=== PATIENT | male | born 1980 ===

== ENCOUNTER 2019-07-20 16:12 | Inpatient (IN) ==
[2019-07-20] MEDS ORDERED: ACETAMINOPHEN 325 MG TABLET PO PRN (22:24)
[2019-07-20] MEDS ORDERED: DOCUSATE SODIUM 100 MG CAPSULE PO PRN (22:24)
[2019-07-20] MEDS ORDERED: ONDANSETRON 4 MG/2 ML VIAL IV PRN (22:24)
[2019-07-20] MEDS ORDERED: ENOXAPARIN 30 MG/0.3 ML SYRINGE ONE (23:33)
[2019-07-21] MEDS: cefTRIAXone 1,000 MG in SYRINGE 1 EACH IV SCH (02:55)
[2019-07-21 06:33] LABS: Basophils % 0.4 % (0.0-0.8); Eosinophils % 0.4 % (0.00-10.9); Hematocrit 43.1 VOL% (42.0-52.0); Hemoglobin 14.3 GM/DL (14.0-18.0); Immature Granulocytes % 1.2 %; Immature Granulocytes Absolute 0.06 #; Lymphocytes % 18.5 % (21.2-54.2); Mean Corpuscular HGB Conc 33.2 GM/DL (32-36); Mean Corpuscular Volume 96.2 FL (87-102); Mean Platelet Volume 12.5 FL (9.6-12.0); Monocytes % 9.6 % (1.7-12.7); Neutrophils % 69.9 % (38.7-73.9); Platelet Count 132 T/CUMM (130-400); Red Blood Count 4.48 MC/CUMM (3.8-5.5); Red Cell Distribution Width 16.4 % (9.3-17.3); White Blood Count 5.2 T/CUMM (4-12)
[2019-07-21 06:43] LABS: INR 1.1; PT Patient Result 11.8 SECS (9.8-11.9)
[2019-07-21 06:47] LABS: Albumin 2.9 G/DL (3.4-5.0); Bilirubin,Total 0.9 MG/DL (0.2-1.0); Calcium 7.9 MG/DL (8.5-10.1); Osmolality,Calculated 258.7 MOS/KG (273-304); Total Protein 7.7 G/DL (6.4-8.3)
[2019-07-21 06:48] LABS: Ferritin 775.6 ng/ml (26-388)
[2019-07-21] MEDS: HYDROXYCHLOROQUINE 200 MG TABLET PO SCH ×2 (09:31→20:45)
[2019-07-21] MEDS: AZITHROMYCIN 250 MG TABLET PO SCH (09:31)
[2019-07-21] MEDS: ZINC SULFATE 220 MG CAPSULE PO SCH (09:31)
[2019-07-21] MEDS: ENOXAPARIN 40 MG/0.4 ML SYRINGE SUBCUT SCH (10:51)
[2019-07-21] MEDS: POTASSIUM CHLORIDE 20 MEQ TABLET PO PRN ×5 (10:51→20:45)
[2019-07-22] MEDS: cefTRIAXone 1,000 MG in SYRINGE 1 EACH IV SCH (04:03)
[2019-07-22 06:06] LABS: Basophils % 0.6 % (0.0-0.8); Eosinophils # 0.1 10*3/uL (0.0-0.87); Eosinophils % 1.7 % (0.00-10.9); Hematocrit 43.5 VOL% (42.0-52.0); Hemoglobin 14.3 GM/DL (14.0-18.0); Immature Granulocytes % 1.5 %; Immature Granulocytes Absolute 0.08 #; Lymphocytes # 1.2 10*3/uL (1.4-4.0); Lymphocytes % 21.8 % (21.2-54.2); Mean Corpuscular HGB Conc 32.9 GM/DL (32-36); Mean Platelet Volume 12.5 FL (9.6-12.0); Monocytes % 10.8 % (1.7-12.7); Neutrophils % 63.6 % (38.7-73.9); Platelet Count 161 T/CUMM (130-400); Red Blood Count 4.53 MC/CUMM (3.8-5.5); Red Cell Distribution Width 16.6 % (9.3-17.3); White Blood Count 5.3 T/CUMM (4-12)
[2019-07-22 07:05] LABS: Albumin 3.1 G/DL (3.4-5.0); Bilirubin,Total 0.6 MG/DL (0.2-1.0); Calcium 8.1 MG/DL (8.5-10.1); Osmolality,Calculated 266.1 MOS/KG (273-304); Total Protein 7.6 G/DL (6.4-8.3)
[2019-07-22] MEDS: HYDROXYCHLOROQUINE 200 MG TABLET PO SCH ×2 (08:50→22:00)
[2019-07-22] MEDS: AZITHROMYCIN 250 MG TABLET PO SCH (08:50)
[2019-07-22] MEDS: ENOXAPARIN 40 MG/0.4 ML SYRINGE SUBCUT SCH (08:50)
[2019-07-23] MEDS: cefTRIAXone 1,000 MG in SYRINGE 1 EACH IV SCH (02:15)
[2019-07-23 05:28] LABS: Basophils % 0.7 % (0.0-0.8); Eosinophils # 0.2 10*3/uL (0.0-0.87); Eosinophils % 3.8 % (0.00-10.9); Hematocrit 44.6 VOL% (42.0-52.0); Hemoglobin 14.4 GM/DL (14.0-18.0); Immature Granulocytes % 1.7 %; Immature Granulocytes Absolute 0.07 #; Lymphocytes # 1.2 10*3/uL (1.4-4.0); Lymphocytes % 27.2 % (21.2-54.2); Mean Corpuscular HGB Conc 32.3 GM/DL (32-36); Mean Corpuscular Volume 98.7 FL (87-102); Mean Platelet Volume 12.6 FL (9.6-12.0); Monocytes % 12.1 % (1.7-12.7); Neutrophils % 54.5 % (38.7-73.9); Platelet Count 174 T/CUMM (130-400); Red Blood Count 4.52 MC/CUMM (3.8-5.5); White Blood Count 4.2 T/CUMM (4-12)
[2019-07-23 06:10] LABS: Bilirubin,Total 1.3 MG/DL (0.2-1.0); Calcium 8.3 MG/DL (8.5-10.1); Osmolality,Calculated 266.1 MOS/KG (273-304); Total Protein 7.9 G/DL (6.4-8.3)
[2019-07-23] MEDS: HYDROXYCHLOROQUINE 200 MG TABLET PO SCH ×2 (09:00→20:45)
[2019-07-23] MEDS: POTASSIUM CHLORIDE 20 MEQ TABLET PO PRN (09:00)
[2019-07-23] MEDS: ZINC SULFATE 220 MG CAPSULE PO SCH (09:00)
[2019-07-23] MEDS: AZITHROMYCIN 250 MG TABLET PO SCH (09:00)
[2019-07-23] MEDS: ENOXAPARIN 40 MG/0.4 ML SYRINGE SUBCUT SCH (09:00)
[2019-07-23 09:24] LABS: Eosinophils 2 % (0-10); Lymphocytes 17 % (20-55); Metamyelocytes 1 %; Platelet Estimate Adequate; Polychromasia Slight; Segmented Neutrophils 67 % (50-85); Total Cells Counted 100
[2019-07-24] MEDS: cefTRIAXone 1,000 MG in SYRINGE 1 EACH IV SCH (02:01)
[2019-07-24 05:46] LABS: Basophils # 0.1 10*3/uL (0.0-0.2); Eosinophils # 0.2 10*3/uL (0.0-0.87); Eosinophils % 4.2 % (0.00-10.9); Hematocrit 45.7 VOL% (42.0-52.0); Hemoglobin 14.8 GM/DL (14.0-18.0); Immature Granulocytes % 2.9 %; Immature Granulocytes Absolute 0.15 #; Lymphocytes # 1.3 10*3/uL (1.4-4.0); Lymphocytes % 25.4 % (21.2-54.2); Mean Corpuscular HGB Conc 32.4 GM/DL (32-36); Mean Corpuscular Volume 98.5 FL (87-102); Mean Platelet Volume 12.6 FL (9.6-12.0); Monocytes % 11.7 % (1.7-12.7); Neutrophils % 54.8 % (38.7-73.9); Platelet Count 218 T/CUMM (130-400); Red Blood Count 4.64 MC/CUMM (3.8-5.5); Red Cell Distribution Width 16.8 % (9.3-17.3); White Blood Count 5.2 T/CUMM (4-12)
[2019-07-24 06:07] LABS: Bilirubin,Total 0.6 MG/DL (0.2-1.0); Calcium 8.9 MG/DL (8.5-10.1); Osmolality,Calculated 269.1 MOS/KG (273-304); Total Protein 8.4 G/DL (6.4-8.3)
[2019-07-24 06:10] LABS: Eosinophils 6 % (0-10); Lymphocytes 23 % (20-55); Segmented Neutrophils 58 % (50-85); Total Cells Counted 100
[2019-07-24 06:11] LABS: Hypochromasia Slight; Macrocytosis 1+
[2019-07-24 06:12] LABS: Platelet Estimate Normal
[2019-07-24] MEDS: HYDROXYCHLOROQUINE 200 MG TABLET PO SCH ×2 (10:29→20:40)
[2019-07-24] MEDS: ENOXAPARIN 40 MG/0.4 ML SYRINGE SUBCUT SCH (10:29)
[2019-07-24] MEDS: AZITHROMYCIN 250 MG TABLET PO SCH (10:29)
[2019-07-25] MEDS: cefTRIAXone 1,000 MG in SYRINGE 1 EACH IV SCH (01:55)
[2019-07-25] MEDS: ENOXAPARIN 40 MG/0.4 ML SYRINGE SUBCUT SCH (08:19)
[2019-07-25] MEDS: ZINC SULFATE 220 MG CAPSULE PO SCH (08:20)
[2019-07-25] MEDS: HYDROXYCHLOROQUINE 200 MG TABLET PO SCH ×2 (08:20→20:00)
[2019-07-26] MEDS: cefTRIAXone 1,000 MG in SYRINGE 1 EACH IV SCH (01:37)
[2019-07-26] MEDS: ENOXAPARIN 40 MG/0.4 ML SYRINGE SUBCUT SCH (08:44)
[2019-07-26 11:26] VITALS: BP 105/58
== END 2019-07-26 16:30 | disposition home or self-care (01) | DRG 177 ==
LOC: SUPCPDRO 19:35 → SUATTDRO 19:35 → N.2E 19:35
PROVIDERS: ADMIT Internal Medicine; ATTEND Internal Medicine Geriatric Medicine